=== PATIENT | female | born 2000 | race Two or more races ===

== ENCOUNTER 2024-04-04 17:33 | Observation (INO) | payer OTHER, SELFPAY ==
[2024-04-04 17:44] VITALS: BP 121/74; PULSE 115
[2024-04-04 17:47] VITALS: BMI 47.4
[2024-04-04 17:57] VITALS: BP 121/74; PULSE 114; RESP 18; TEMP 36.9
== END 2024-04-04 18:15 | disposition home or self-care (01) ==
PROVIDERS: Admitting Provider Obstetrics & Gynecology; Visit Provider Obstetrics & Gynecology
DX: O26.893 Other specified pregnancy related conditions, third trimester (principal); R25.2 Cramp and spasm; Z3A.37 37 weeks gestation of pregnancy
CPT/HCPCS: 59025; 59899

== ENCOUNTER 2024-04-06 12:47 | Observation (INO) | payer OTHER, SELFPAY ==
[2024-04-06] VITALS (20 sets, daily range): BP systolic 120–125; BP diastolic 70–82; PULSE 94–125; RESP 18–99; TEMP 36.8; O2SAT 93–99; BMI 47.1
[2024-04-06 14:15] LABS: Collection Type, Urine Clean Catch
[2024-04-06 14:32] LABS: Bilirubin,Urine Negative (Negative); Blood,Urine Negative (Negative); Clarity,Urine Clear (Clear/Hazy); Color,Urine Yellow (Lt Yel-Yel); Glucose, Urine Negative (Negative); Ketones,Urine 1+ (Negative); Leukocyte Esterase,Urine Positive (Negative); Nitrite,Urine Negative (Negative); PH,Urine 5.5 (5.0-7.0); Protein,Urine Trace (Neg - Trace); RBC,Urine 4 /hpf (0-3); Specific Gravity,Urine 1.022 (1.001-1.035); Squamous Epithelial Cell,Urine 1 /hpf (0-5); Urobilinogen,Urine Negative mg/dL (0.0-1.0); WBC,Urine 4 /hpf (0-5)
== END 2024-04-06 15:10 | disposition home or self-care (01) ==
PROVIDERS: Admitting Provider Specialist; Visit Provider Specialist
DX: O36.8130 Decreased fetal movements, third trimester, not applicable or unspecified (principal); O26.893 Other specified pregnancy related conditions, third trimester; R25.2 Cramp and spasm; Z3A.37 37 weeks gestation of pregnancy
CPT/HCPCS: 59025; 59899; 81001

== ENCOUNTER 2024-04-08 14:05 | Inpatient (IN) | payer OTHER, MEDICAID, SELFPAY ==
[2024-04-08] VITALS (37 sets, daily range): BP systolic 0–139; BP diastolic 0–86; PULSE 88–224; RESP 18–97; TEMP 36.5–36.6; O2SAT 82–99; BMI 47.4
--- NOTE | 2024-04-08 13:50 | XR_ITS ---
Examination: Biophysical profile, ultrasound Date and time of exam: April 08, 2024 1431 hours INDICATIONS: tachycardia today, history of oligohydramnios Technique: Multiple transabdominal sonographic images of the pelvis abdomen obtained. Attention is directed to the breathing movement, gross body movement, amniotic fluid volume and tone. Findings: Amniotic fluid index 4.3 cm Cardiac motion 169 bpm Total biophysical profile is 4 of 8 breathing movement is 2. Gross body movement 0. tone is 2. Qualitative amniotic fluid volume is 0 Impression: Biophysical profile is 4 of 8.
[2024-04-08 15:35] LABS: ROM Kit Lot # 57805053; ROM Swab Mixed By: OSEGA; Swb Mxed in Solvent 1 min? Yes
[2024-04-08 15:55] LABS: Rupture of Fetal Membranes Negative (Negative)
[2024-04-08 18:10] LABS: Basophils # (Auto) 0.1 Thou/mm3 (0.0-0.2); Basophils % (Auto) 0 % (0-2.5); Eosinophils # (Auto) 0.1 Thou/mm3 (0.0-0.5); Eosinophils % (Auto) 1 % (0-10); Hematocrit 37.2 % (36.0-46.0); Hemoglobin 12.4 g/dL (12.0-16.0); Immature Granulocytes % (Auto) 1 % (0-0); Immature Granulocytes Auto 0.14 Thou/mm3 (0.00-0.00); Lymphocytes % (Auto) 13 % (10-50); Mean Corpuscular HGB Conc 33.3 g/dl (31.0-37.0); Mean Corpuscular Hemoglobin 27.8 pg (25.0-35.0); Mean Corpuscular Volume 83 fL (80-100); Monocytes % (Auto) 6 % (0-12); Neutrophils # (Auto) 11.9 Thou/mm3 (1.8-7.7); Neutrophils % (Auto) 79 % (37-80); Nucleated Red Blood Cell % 0 /100 WBC (0); Platelet Count 359 Thou/mm3 (140-440); RDW Standard Deviation 43.7 fL (36.4-46.3); Red Blood Count 4.46 Miln/mm3 (4.00-5.20); White Blood Count 15.1 Thou/mm3 (3.6-11.0)
[2024-04-08 19:07] LABS: Syphilis Nonreactive (Nonreactive)
[2024-04-08] MEDS: DINOPROSTONE 10 MG VAG.SUPP VAGINAL (19:23)
[2024-04-08] MEDS: RINGERS LACTATED 1000 ML 1,000 ML 100 ML IV (19:27)
[2024-04-08] MEDS: cefTRIAXone/D5w 1gm IV premix 50 ML IV (20:14)
[2024-04-09] VITALS (63 sets, daily range): BP systolic 0–177; BP diastolic 0–111; PULSE 92–115; RESP 15–23; TEMP 36.3–37.3; O2SAT 79–100
[2024-04-09] MEDS: NIFEdipine 10 MG CAPSULE PO (01:25)
[2024-04-09] MEDS: RINGERS LACTATED 1000 ML 1,000 ML 100 ML IV ×2 (01:45→07:26)
--- NOTE | 2024-04-09 06:48 | PD.LDHP ---
Documentation for date of: 04/08/24 OB Labor/Induct. HPI History of Present Illness History of present illness: H and P dictated on the STAT line #9 . Dictation # [id number] History of Present Adequate Care: Yes Labs Labs: Negative: Hepatitis B, HIV, Chlamydia, Gonorrhea and Group Beta Strep Meds Home Medications and Allergies Home Medications ?Medication ?Instructions ?Recorded ?Confirmed ?Type aspirin 81 mg capsule 81 mg DAILY 04/08/24 04/08/24 History cefuroxime axetil 500 mg tablet 500 mg BID 04/08/24 04/08/24 History okroitmx-hpn-Rn-FA 1 mg 2 tab PO DAILY 04/08/24 04/08/24 History tablet Allergies Allergy/AdvReac Type Severity Reaction Status Date / Time sulfamethoxazole Allergy Mild Rash, Verified 04/08/24 14:23 Itching trimethoprim Allergy Mild Rash, Verified 04/08/24 14:23 Itching OB Exam Physical Exam Vital signs: Temp Pulse Resp BP Pulse Ox 98.7 F 96 18 127/77 94 L 04/09/24 04:03 04/09/24 06:29 04/08/24 16:50 04/09/24 06:29 04/09/24 06:40 OB Results Labs 04/08/24 17:00 Labs: Short CBC 04/08/24 Range/Units 17:00 WBC 15.1 H (3.6-11.0) Thou/mm3 Hgb 12.4 (12.0-16.0) g/dL Hct 37.2 (36.0-46.0) % Plt Count 359 (140-440) Thou/mm3
--- NOTE | 2024-04-09 06:49 | PD.LDPN ---
Documentation for date of: 04/09/24 OB Labor Progress Note Pain Control Comments: None Pelvic Exam Dilation (cm): 1.5 Effacement (%): 50 station: -3 Amniotic membrane status: Intact Contractions Contraction frequency: irregular Status status: Category l CNM Management Details of MD consultation: Tachysystole with Cervidil last night requiring removal and Procardia for tachysystole Discussed risks of giving Cytotec with oligohydramnios and concern about repeating Cervidil Patient declines further trial of induction. Elects delivery. Patient made aware of the risk complication alternatives benefits of the proposed procedure and she agrees
[2024-04-09] MEDS: ceFAZolin/D5W 2 GM IV 2 GM/100 ML BAG IV (07:12)
[2024-04-09] MEDS: METOCLOPRAMIDE INJ 5 MG/ML VIAL 2 ML 10 MG IVP (07:12)
[2024-04-09] MEDS: FAMOTIDINE INJ 10 MG/ML VIAL 2 ML 20 MG IV (07:12)
--- NOTE | 2024-04-09 07:12 | PD.LDDS ---
DS: Providers Provider Date of admission: 04/08/24 16:29 Primary care physician: Physician No Primary/Family Admitting Provider: Ryan Manzanares MD Attending Provider on Admission: Ryan Manzanares MD Attending Provider on DC: Ryan Manzanares MD Discharging Provider: Ryan Manzanares MD DS: Diagnosis Discharge Diagnosis (1) endometritis: Status: Acute (2) Uterine atony: Status: Acute (3) delivery delivered: Status: Acute (4) Failed induction of labor: Status: Acute (5) Oligohydramnios: Status: Acute (6) Uterine hypertonus: Status: Acute Problem List Completed Was Problem List Reviewed/Reconciled?: Yes Summary/Hosp Course Brief History: H and P dictated on the STAT line #9 . Dictation # [id number] Peripartum Data Delivery Method: Low Transverse Procedures: Procedures Operation Date: 04/09/24 07:45 <No data on this case meets the specified criteria> Time Spent with Patient Time attestation: Total time spent providing and/or coordinating discharge services: Exam Vital Signs Temp Pulse Resp BP Pulse Ox 98.7 F 105 H 18 139/83 H 96 04/09/24 04:03 04/09/24 06:59 04/08/24 16:50 04/09/24 06:59 04/09/24 07:10 Discharge Plan Plan Patient Disposition: HOME (Self Care) Patient condition on transfer: Stable Prescriptions/Referrals Prescriptions/Med Rec: New fluconazole 150 mg tablet 150 mg PO QDAY Qty: 1 0RF hydrocodone-acetaminophen 5-325 mg tablet 1 tab PO Q6H MDD 4 PRN (Reason: pain) Qty: 20 0RF ibuprofen 600 mg tablet 600 mg PO Q6H PRN (Reason: pain) Qty: 30 0RF Continued btxfsjqx-zil-Cq-FA 1 mg Tablet 2 tab PO DAILY cefuroxime axetil 500 mg Tablet 500 mg BID Discontinued aspirin 81 mg Capsule 81 mg DAILY Referrals: No Primary/Family,Physician [Primary Care Provider] - Patient/Caregiver Discharge Instructions Other Discharge Activity Instructions:: Schedule an appoitment with the in one week Education Materials: Breast Care After , After a , : Caring for Yourself, C Section Dc Print Language: Bengali Stand Alone Forms: Sherita Award Info., Patient Portal Info Letter Discharge Order Discharge Orders: Discharge (Routine); Ordered 04/12/24 Ordered By: Ryan Manzanares Planned Discharge Date 04/12/24
--- NOTE | 2024-04-09 08:16 | ESHP_ITS ---
RE: LATISHA BAEZ : 2000 DATE OF ADMISSION: 04/08/2024 HISTORY OF PRESENT ILLNESS: This 23-year-old 1 para 0 with due date of 04/22/2024 with intrauterine at 38 weeks and 0 days, who presents to labor and delivery today for tachycardia in the office and she underwent an evaluation and workup, which included a biophysical profile, which showed an GABE of 4.3 and no gross body movement consistent with biophysical of 4/8. The patient does report decreased movement. Her AmniSure is negative. She is being admitted for induction of labor for oligohydramnios at term. She reports she denies any bleeding. She had a maternal medicine ultrasound during her , which showed normal anatomy. She did have a mild COVID-19 infection on 11/30/2023. She has got borderline chronic hypertension, but she does not take any medications. She has a BMI of 48. ALLERGIES: BACTRIM. MEDICATIONS: 1. Cefuroxime 500 mg 1 p.o. b.i.d. 2. Clotrimazole 1% vaginal cream 1 applicator at bedtime. 3. Baby aspirin 81 mg 1 p.o. daily. 4. Albuterol sulfate 90 mcg per inhalation every 4 hours p.r.n. shortness of breath and wheezing. 5. vitamin 1 p.o. daily. SOCIAL HISTORY: She is single. She denies any alcohol or drug use or smoking. FAMILY HISTORY: Colon cancer and hypertension. PAST MEDICAL HISTORY: Class III obesity, borderline chronic hypertension, and asthma. PHYSICAL EXAMINATION: VITAL SIGNS: Blood pressure 137/85, heart rate 101, respirations 16, temperature is 98.6, and weight 317 pounds. HEENT: Oropharynx and sclerae are clear. LUNGS: Clear to auscultation bilaterally. HEART: Regular rate and rhythm. ABDOMEN: Gravid term size consistent with estimated weight of 7-1/2 pounds. PELVIC: See RN notes. EXTREMITIES: Nontender. SKIN: No gross rashes or lesions. NEUROLOGIC: No focal deficits. ASSESSMENT: Intrauterine at 38 weeks and 0 days, oligohydramnios, biophysical profile 4/8, borderline chronic hypertension, class III obesity. PLAN: Induction of labor. Informed consent was obtained. The patient was made aware of the risks, complications, alternatives, and benefits of the proposed procedure and she agrees. She is aware of the risk of operative vaginal delivery and delivery and agrees with these modes of delivery if indicated. DT: 16:33:22 TT: 17:07:00 Ref: [id number] - TID: [id number]
--- NOTE | 2024-04-09 08:41 | OBDSUM_ITS ---
Data ([facility]) Data : 1 Para: 0 Term: 0 : 0 : 0 Delivery Data ([facility]) Labor Data Induction: Yes ROM Date: 04/09/24 ROM Time: 08:12 Rupture Type: AROM Amniotic Fluid: Clear Delivery Data EDC: 04/22/24 EDC calculated by:: LMP/early US confirmation Labor Onset Stage 1 Date: 04/09/24 Labor Onset Stage 1 Time: 08:13 Labor Onset Stage 2 Date: 04/09/24 Labor Onset Stage 2 Time: 08:13 Delivery Date: 04/09/24 Delivery Time: 08:13 Gestational age (weeks): 38 Gestational age (days): 1 Placenta Delivery Date: 04/09/24 Placenta Delivery Time: 08:14 Delivered by: Ryan Manzanares Delivery nurse: Amy Lind Other staff at delivery: Nursery Nurse Other staff at delivery: Bowling Ball Marker Other staff at delivery: RT Other staff at delivery: Scrub Other staff at delivery: Sharron Angulo Other staff at delivery: Sigrid Fraga Other staff at delivery: JOHN Other staff at delivery: RAMOC Delivery Method Delivery: Delivery Type: Primary Presentation: Vertex Position: OP Anesthesia Type Primary Anesthesia: Spinal Secondary Anesthesia: General Placenta Placenta Delivery: Manual EBL Estimated blood loss (ml): 800 Umbilical Cord Umbilical Vessels: 3 Nuchal Cord: None Additional Procedures Vacuum assisted Delivery with Mity Vac (see OP Report) Complications Complications: Uterine atony [place] Data ([facility]) [place] Data Infant Gender: Female Weight Grams: 3450 1 Minute Total: 8 5 Minute Total: 9
[2024-04-09] MEDS: MISOPROSTOL 200 mCg TABLET 800 MCG PR (08:56)
[2024-04-09] MEDS: DIPHENOXYLATE/ATROP SULF 1 TAB PO (09:32)
[2024-04-09] MEDS: KETOROLAC INJ 30 MG/ML VIAL IVP ×2 (09:40→20:51)
--- NOTE | 2024-04-09 10:00 | ESOP_ITS ---
RE: LATISHA BAEZ : 2000 DATE OF OPERATION: 04/09/2024 PREOPERATIVE DIAGNOSES: 1. Intrauterine at 38 weeks and 1 day. 2. Oligohydramnios. 3. Biophysical profile 4/8. 4. Borderline chronic hypertension. 5. Class III obesity. 6. Failed induction. POSTOPERATIVE DIAGNOSES: 1. Intrauterine at 38 weeks and 1 day. 2. Oligohydramnios. 3. Biophysical profile /8. 4. Borderline chronic hypertension. 5. Class III obesity. 6. Failed induction. 7. Uterine atony. PROCEDURE PERFORMED: Primary low-transverse section via Pfannenstiel skin incision. SURGEON: Ryan Manzanares DO HAIRSPRING STUDDER: MISAEL Fontanez ANESTHESIA: Spinal with IV sedation. ANESTHESIOLOGIST: Nacho Virk CRNA ESTIMATED BLOOD LOSS: 800 mL COMPLICATIONS: Uterine atony. FINDINGS: A live female , cephalic presentation, occiput posterior. Apgars 8 and 9, weight 3450 g. DESCRIPTION OF PROCEDURE: After proper informed consent was obtained and the patient was made aware of the risks, complications, alternatives, and benefits of the proposed procedure, she was taken to the operating room where she underwent induction of spinal anesthesia. She was placed in the dorsal supine position with leftward tilt. She was prepped and draped in the usual sterile fashion. A timeout was performed. The patient still had some sensation, so she underwent IV sedation. A Pfannenstiel skin incision was made with a scalpel carried through to the underlying layer of fascia with the Bovie. The fascia was nicked in the midline. Incision extending bilaterally with the Bovie. The inferior aspect of the fascial incision was grasped with Silvina clamps and elevated. The underlying rectus muscle were dissected off with the Bovie. The rectus muscles were in the midline. The perineum identified between two Arnold clamps and incised sharply with the Metzenbaum scissors. The incision was extended superiorly and inferiorly with good visualization of the bladder. The bladder blade was then inserted. The vesicouterine peritoneum was incised transversely and bladder flap was created digitally. The bladder blades were reinserted. The lower uterine segment was incised in transverse fashion with scalpel. The incision was extended bilaterally and digitally. The patient's head was unable to be delivered. Therefore, vacuum was placed 3 cm forward of the posterior fontanelle over the sagittal suture and the first traction and tip of the head delivered. The mouth was suctioned with a bulb suction. Shoulder and body delivered atraumatically. The cord was clamped and cut. The was handed off to the waiting pediatric staff. Cord blood and gases were sent. The placenta was removed complete and intact. The uterus was exteriorized and cleared of all clots and debris. The uterus was initially atonic, but responded to uterotonics. The uterus incision was closed with #1-0 chromic catgut suture in a running locking fashion. A second layer of same suture was used to imbricate the first layer and obtained excellent hemostasis. The vesicouterine peritoneum was closed with 2-0 chromic suture in a running fashion. The uterus was returned to the abdomen. The gutters were cleared of all clots and debris. The lower uterine segment was hemostatic. The peritoneum was closed with a 0-chromic catgut suture in a running fashion. The muscle was closed with 0 chromic catgut suture in a running fashion. The fascia was closed with #0 Vicryl beginning at each angle and ending in the center in running fashion. Subcutaneous tissue was irrigated with normal saline solution and found to be hemostatic and closed with 2-0 chromic catgut suture in a running fashion. The skin was closed with 4-0 Monocryl. A Dermabond perineal dressing was applied. Sterile pressure dressing was applied. She tolerated the procedure well. Counts were correct. I discussed with the patient, the nature of her condition and the intraoperative findings and expectation for recovery. All questions answered. DT: 08:44:35 TT: 09:59:00 Ref: [id number] - TID: [id number]
[2024-04-09] MEDS: OXYTOCIN in NS 20 units 20 UNIT/1,000 ML BAG 125 UNIT IV ×2 (10:12→17:07)
[2024-04-09 13:52] LABS: Basophils # (Auto) 0.1 Thou/mm3 (0.0-0.2); Basophils % (Auto) 0 % (0-2.5); Eosinophils % (Auto) 0 % (0-10); Hematocrit 29.1 % (36.0-46.0); Hemoglobin 9.4 g/dL (12.0-16.0); Immature Granulocytes % (Auto) 1 % (0-0); Immature Granulocytes Auto 0.15 Thou/mm3 (0.00-0.00); Lymphocytes # (Auto) 2.1 Thou/mm3 (1.0-4.8); Lymphocytes % (Auto) 12 % (10-50); Mean Corpuscular HGB Conc 32.3 g/dl (31.0-37.0); Mean Corpuscular Hemoglobin 27.7 pg (25.0-35.0); Mean Corpuscular Volume 86 fL (80-100); Monocytes # (Auto) 1.1 Thou/mm3 (0.0-0.8); Monocytes % (Auto) 6 % (0-12); Neutrophils # (Auto) 14.1 Thou/mm3 (1.8-7.7); Neutrophils % (Auto) 81 % (37-80); Nucleated Red Blood Cell % 0 /100 WBC (0); Platelet Count 291 Thou/mm3 (140-440); RDW Standard Deviation 45.4 fL (36.4-46.3); Red Blood Count 3.39 Miln/mm3 (4.00-5.20); White Blood Count 17.4 Thou/mm3 (3.6-11.0)
[2024-04-10 00:14] VITALS: BP 130/84; PULSE 113; RESP 20; TEMP 36.8; O2SAT 97
[2024-04-10 04:25] VITALS: BP 124/80; PULSE 110; RESP 22; TEMP 36.9; O2SAT 97
[2024-04-10] MEDS: KETOROLAC INJ 30 MG/ML VIAL IVP (06:34)
[2024-04-10 07:30] LABS: Basophils % (Auto) 0 % (0-2.5); Eosinophils % (Auto) 0 % (0-10); Hematocrit 26.8 % (36.0-46.0); Immature Granulocytes % (Auto) 1 % (0-0); Immature Granulocytes Auto 0.15 Thou/mm3 (0.00-0.00); Lymphocytes % (Auto) 12 % (10-50); Mean Corpuscular HGB Conc 33.6 g/dl (31.0-37.0); Mean Corpuscular Hemoglobin 28.3 pg (25.0-35.0); Mean Corpuscular Volume 84 fL (80-100); Monocytes # (Auto) 1.1 Thou/mm3 (0.0-0.8); Monocytes % (Auto) 6 % (0-12); Neutrophils # (Auto) 13.9 Thou/mm3 (1.8-7.7); Neutrophils % (Auto) 81 % (37-80); Nucleated Red Blood Cell % 0 /100 WBC (0); Platelet Count 272 Thou/mm3 (140-440); RDW Standard Deviation 44.5 fL (36.4-46.3); Red Blood Count 3.18 Miln/mm3 (4.00-5.20); White Blood Count 17.2 Thou/mm3 (3.6-11.0)
[2024-04-10 08:15] VITALS: BP 127/87; PULSE 96; RESP 17; TEMP 36.7; O2SAT 99
[2024-04-10] MEDS: cefTRIAXone 1,000 MG, LIDOCAINE 1% 20 ML 2.1 ML IM (09:19)
[2024-04-10] MEDS: ENOXAPARIN SOD INJ 40 MG/0.4 ML SYRINGE SC (09:19)
[2024-04-10] MEDS: SIMETHICONE 80 MG CHEW PO ×3 (09:20→22:27)
--- NOTE | 2024-04-10 11:03 | ESPR_ITS ---
RE: LATISHA BAEZ : 2000 DATE OF SERVICE: 04/10/2024 S: On postop day#1, the patient denies any problem or complaint. She is tolerating regular diet. She is voiding without difficulty. She denies any chest pain, palpitation, shortness of breath or lower extremity pain. She denies any dizziness or lightheadedness. She denies any excessive vaginal bleeding. O: Vital Signs: Blood pressure 124/80, heart rate 110, respirations 22, temperature 98.5, pulse ox is 97% on room air. Lungs: Clear to auscultation bilaterally. Heart: Tachycardic, but regular rhythm. Abdomen: Nondistended. Fundus is firm. Dressing is dry and intact. Extremities: Nontender. LABORATORY DATA: Hemoglobin pre-delivery 12.4 and post-delivery is 9.0. A: Postop day #1, status post delivery. Urinary tract infection. P: Continue antibiotics and possible discharge home tomorrow. DT: 08:38:52 TT: 11:01:00 Ref: [id number] - TID: [id number]
[2024-04-10 11:45] VITALS: BP 127/84; PULSE 116; RESP 18; TEMP 36.7; O2SAT 99
--- NOTE | 2024-04-10 12:00 | XR_ITS ---
Examination: AP lateral chest 2 views Technique: AP portable upright lateral chest 2 views Exam date and time: April 10, 2024 1228 hrs. Indications: Coughing today. Findings: Underpenetrated film Normal heart size No lobar pneumonia No pulmonary edema The osseous structures are intact Impression: No lobar pneumonia
[2024-04-10 12:33] LABS: Basophils % (Auto) 0 % (0-2.5); Eosinophils % (Auto) 0 % (0-10); Hematocrit 29.4 % (36.0-46.0); Hemoglobin 9.8 g/dL (12.0-16.0); Immature Granulocytes % (Auto) 1 % (0-0); Immature Granulocytes Auto 0.18 Thou/mm3 (0.00-0.00); Lymphocytes # (Auto) 2.2 Thou/mm3 (1.0-4.8); Lymphocytes % (Auto) 12 % (10-50); Mean Corpuscular HGB Conc 33.3 g/dl (31.0-37.0); Mean Corpuscular Hemoglobin 28.2 pg (25.0-35.0); Mean Corpuscular Volume 85 fL (80-100); Monocytes # (Auto) 1.1 Thou/mm3 (0.0-0.8); Monocytes % (Auto) 6 % (0-12); Neutrophils # (Auto) 14.3 Thou/mm3 (1.8-7.7); Neutrophils % (Auto) 81 % (37-80); Nucleated Red Blood Cell % 0 /100 WBC (0); Platelet Count 306 Thou/mm3 (140-440); RDW Standard Deviation 44.4 fL (36.4-46.3); Red Blood Count 3.48 Miln/mm3 (4.00-5.20); White Blood Count 17.8 Thou/mm3 (3.6-11.0)
[2024-04-10 13:04] LABS: Alanine Aminotransferase 25 U/L (10-49); Albumin, Serum 3.5 gm/dL (3.5-5.0); Albumin/Globulin Ratio 1.5 (1.2-2.2); Alkaline Phosphatase 218 U/L (46-116); Anion Gap 9 (7-16); Aspartate Amino Transferase 22 U/L (0-34); BUN/Creatinine Ratio 10 Ratio (12-20); Bilirubin,Total 0.3 mg/dL (0.3-1.2); Blood Urea Nitrogen 8 mg/dL (9-23); Calcium (Corrected) 9.4 mg/dL (8.5-10.1); Carbon Dioxide 23.1 mMol/L (20.0-31.0); Chloride 107 mMol/L (98-107); Creatinine (Component) 0.8 mg/dL (0.6-1.3); Estimated Creatinine Clearance 248.5 mL/min (>60); Globulin 2.3 gm/dL (2.3-3.5); Glucose 114 mg/dL (74-106); Osmolality,Calculated 276 (275-295); Sodium 139 mMol/L (136-145); Total Protein 5.8 gm/dL (5.7-8.2); eGFR > 60 See Note
[2024-04-10 13:06] LABS: Procalcitonin 0.13 ng/ml (0.0-0.49)
[2024-04-10 13:15] LABS: INR 0.9 (0.9-1.3); Partial Thromboplastin Time 25.8 Seconds (22.0-36.0); Prothrombin Time 10.1 Seconds (9.0-12.2)
[2024-04-10] MEDS: SODIUM CHLORIDE 0.9% 1000 ML 1,000 ML 999 ML IV (14:00)
[2024-04-10] MEDS: AMPICILLIN/SULBAC INJ 3 GM in SODIUM CHLORIDE 0.9% (P) 100 ML IV ×2 (14:00→20:17)
[2024-04-10 15:15] VITALS: BP 121/81; PULSE 108; RESP 17; TEMP 36.8; O2SAT 99
[2024-04-10] MEDS: Milk Of Magnesia Susp 30 ML UDC PO (15:58)
[2024-04-10] MEDS: IBUPROFEN TAB 400 MG TABLET 800 MG PO (16:26)
[2024-04-10 19:30] VITALS: BP 123/83; PULSE 108; RESP 22; TEMP 36.8; O2SAT 98
[2024-04-11] MEDS: IBUPROFEN TAB 400 MG TABLET 800 MG PO ×2 (00:38→15:57)
[2024-04-11] MEDS: AMPICILLIN/SULBAC INJ 3 GM in SODIUM CHLORIDE 0.9% (P) 100 ML IV ×4 (02:42→20:36)
[2024-04-11 03:40] VITALS: BP 111/77; PULSE 97; RESP 18; TEMP 36.6; O2SAT 98
[2024-04-11 05:42] LABS: Basophils % (Auto) 0 % (0-2.5); Eosinophils % (Auto) 0 % (0-10); Hematocrit 25.7 % (36.0-46.0); Immature Granulocytes % (Auto) 1 % (0-0); Immature Granulocytes Auto 0.15 Thou/mm3 (0.00-0.00); Lymphocytes # (Auto) 2.4 Thou/mm3 (1.0-4.8); Lymphocytes % (Auto) 16 % (10-50); Mean Corpuscular HGB Conc 32.7 g/dl (31.0-37.0); Mean Corpuscular Hemoglobin 28.1 pg (25.0-35.0); Mean Corpuscular Volume 86 fL (80-100); Monocytes % (Auto) 7 % (0-12); Neutrophils # (Auto) 10.9 Thou/mm3 (1.8-7.7); Neutrophils % (Auto) 75 % (37-80); Nucleated Red Blood Cell % 0 /100 WBC (0); Platelet Count 268 Thou/mm3 (140-440); RDW Standard Deviation 45.9 fL (36.4-46.3); Red Blood Count 2.99 Miln/mm3 (4.00-5.20); White Blood Count 14.5 Thou/mm3 (3.6-11.0)
[2024-04-11 05:48] LABS: Hemoglobin 8.4 g/dL (12.0-16.0)
--- NOTE | 2024-04-11 06:29 | PC.NURSE ---
04-11-24624: Called MD Manzanares, made aware of CBC results from 04-11-24499, no new orders at this time.
--- NOTE | 2024-04-11 07:08 | ESPR_ITS ---
RE: LATISHA BAEZ : 2000 DATE OF SERVICE: 04/11/2024 S: Postop day #2, the patient feels much better. She denies any chest pain, palpitations, cough, fever, shortness of breath or lower extremity pain. She denies any headache, change in vision or right upper quadrant pain. She is voiding and ambulating and tolerating regular diet. She is passing flatus. She denies any dizziness or lightheadedness. O: Vitals Signs: Blood pressure 111/77, heart rate 97, respirations 18, temperature 97.9, and pulse oximetry 98% on room air. Lungs: Clear to auscultation bilaterally. Heart: Regular rate and rhythm. Abdomen: Incision clear and intact. Fundus is firm. Extremities: Nontender. Laboratory Data: White blood cell count went from 17.8 to 14.5. Hemoglobin went from 9.8 to 8.4 after a liter of fluid. A: 1. Postoperative day #2, status post delivery. 2. endometritis. 3. Urinary tract infection. P: Continue IV antibiotics for another 24 hours. Possible discharge home tomorrow. Iron deficiency anemia secondary to acute blood loss and dilutional effect of IV fluids, hemodynamically stable. DT: 06:36:56 TT: 07:06:00 Ref: [id number] - TID: [id number] MTDD
[2024-04-11 08:00] VITALS: BP 126/81; PULSE 117; RESP 19; TEMP 36.7; O2SAT 98
[2024-04-11] MEDS: ONDANSETRON INJ 2 MG/ML INJ 2 ML 4 MG IV (08:14)
[2024-04-11] MEDS: ENOXAPARIN SOD INJ 40 MG/0.4 ML SYRINGE SC (08:14)
[2024-04-11 12:00] VITALS: BP 130/80; PULSE 89; RESP 19; TEMP 36.7; O2SAT 98
[2024-04-11] MEDS: bisacodyL 10 MG SUPP PR (12:07)
[2024-04-11] MEDS: DOCUSATE SOD 100 MG CAPSULE PO (15:57)
[2024-04-11 15:59] VITALS: BP 132/80; PULSE 93; RESP 19; TEMP 36.7; O2SAT 97
[2024-04-11 19:44] VITALS: BP 122/81; PULSE 90; RESP 20; TEMP 37.2; O2SAT 98
--- NOTE | 2024-04-12 02:55 | PC.NURSE ---
04-12-24 At 0220 attempted to access patients IV for antibiotic administration, patients IV was infiltrated. Charge nurse made aware and attempted to insert another IV but was unsuccessful. MD Manzanares notified on 04-12-24 at 0242, new orders received.
[2024-04-12] MEDS: cefTRIAXone 1,000 MG, LIDOCAINE 1% 20 ML 2.1 ML IM (03:22)
[2024-04-12 04:00] VITALS: BP 127/84; PULSE 99; RESP 18; TEMP 36.8; O2SAT 99
[2024-04-12 06:53] LABS: Basophils % (Auto) 0 % (0-2.5); Eosinophils # (Auto) 0.1 Thou/mm3 (0.0-0.5); Eosinophils % (Auto) 1 % (0-10); Hematocrit 26.7 % (36.0-46.0); Hemoglobin 8.5 g/dL (12.0-16.0); Immature Granulocytes % (Auto) 1 % (0-0); Immature Granulocytes Auto 0.13 Thou/mm3 (0.00-0.00); Lymphocytes # (Auto) 2.4 Thou/mm3 (1.0-4.8); Lymphocytes % (Auto) 17 % (10-50); Mean Corpuscular HGB Conc 31.8 g/dl (31.0-37.0); Mean Corpuscular Volume 88 fL (80-100); Monocytes % (Auto) 7 % (0-12); Neutrophils % (Auto) 74 % (37-80); Nucleated Red Blood Cell % 0 /100 WBC (0); Platelet Count 316 Thou/mm3 (140-440); RDW Standard Deviation 47.9 fL (36.4-46.3); Red Blood Count 3.04 Miln/mm3 (4.00-5.20); White Blood Count 13.6 Thou/mm3 (3.6-11.0)
[2024-04-12 08:00] VITALS: BP 136/81; PULSE 110; RESP 16; TEMP 36.7; O2SAT 97
--- NOTE | 2024-04-12 08:00 | ESPR_ITS ---
RE: LATISHA BAEZ : 2000 DATE OF SERVICE: 04/12/2024 SUBJECTIVE: Postoperative day #3, the patient feels much better. She is voiding, ambulating, tolerating diet, passing flatus. She has had a bowel movement. She denies any excessive vaginal bleeding. She denies any dizziness or lightheadedness. She denies any chest pain, palpitations, shortness of breath, or lower extremity pain. OBJECTIVE: Vital Signs: Blood pressure 127/88, heart rate 99, respirations 18, temperature 98.2, pulse ox is 99% on room air. Lungs: Clear to auscultation bilaterally. Heart: Regular rate and rhythm. Abdomen: Incision clear and intact. Fundus is firm, nontender. Extremities: Nontender. LABORATORY DATA: Hemoglobin 8.5 and white blood cell count is 13.6. Blood culture is negative. Urine culture is pending. ASSESSMENT: 1. Postop day #3, status post delivery. 2. endometritis. 3. Urinary tract infection. PLAN: Discharge home on cefuroxime 500 mg p.o. b.i.d. x7 days. Follow up in the office on Friday. Discharge instructions given. Continue vitamin. DT: 07:31:12 TT: 07:59:00 Ref: [id number] - TID: [id number]
--- NOTE | 2024-04-12 09:07 | PC.NURSE ---
DR PALOMO MADE AWARE OF PTS VS. PER DOC OK FOR DC
== END 2024-04-12 11:10 | disposition home or self-care (01) | DRG 787 ==
LOC: S4SX 04-09 06:39 → S4NX 04-09 07:37
PROVIDERS: Admitting Provider Specialist; Visit Provider Specialist
PROC: 10D00Z1 Extraction of Products of Conception, Low, Open Approach (ICD-10-PCS; CPT 59514; principal; 2024-04-09 07:30)
DX: O41.03X0 Oligohydramnios, third trimester, not applicable or unspecified (principal); N39.0 Urinary tract infection, site not specified; O86.12 Endometritis following delivery; Z37.0 Single live birth; Z3A.38 38 weeks gestation of pregnancy; O99.214 Obesity complicating childbirth; E66.813 Obesity, class 3; O16.4 Unspecified maternal hypertension, complicating childbirth; O36.8130 Decreased fetal movements, third trimester, not applicable or unspecified; O61.1 Failed instrumental induction of labor; O62.2 Other uterine inertia; Z86.16 Personal history of COVID-19
CPT/HCPCS: 36415; 59025; 59409; 71046; 76819; 80053; 84112; 84145; 85025; 85610; 85730; 86780; 86850; 86900; 86901; 87040; 87077; 87086; 87186; 94762; A4649; J0295; J0689; J0696; J1650; J1885; J2250; J2274; J2371; J2405; J2590; J2704; J2765; J3010; J3490; J7030; J7120; S0191; A9270; J2270

== ENCOUNTER 2024-06-08 19:55 | Emergency (ER) | payer MEDICAID, SELFPAY ==
[2024-06-08 19:56] VITALS: BMI 43.4
[2024-06-08 20:44] VITALS: BP 125/72; PULSE 107; RESP 18; TEMP 37.6; O2SAT 99
--- NOTE | 2024-06-08 20:53 | PD.EDSKIN ---
ED Skin Abcess FB-RME/HPI General Chief complaint: Urogenital-Female Stated complaint: POSSIBLE MASTITIS Time Seen by Provider: 06/08/24 20:49 Arrival date/time: 06/08/24 19:55 23F with no significant PMH presents to ED with several days of L breast pain. Patient has been for about 2 months. Limitations: no limitations Related Data Home Medications ?Medication ?Instructions ?Recorded ?Confirmed cefuroxime axetil 500 mg tablet 500 mg BID 04/08/24 04/08/24 [id number]-FA 1 mg 2 tab PO DAILY 04/08/24 04/08/24 tablet Previous Rx's ?Medication ?Instructions ?Recorded fluconazole 150 mg tablet 150 mg PO QDAY #1 tab 04/12/24 hydrocodone 5 mg-acetaminophen 325 1 tab PO Q6H PRN pain #20 tabs 04/12/24 mg tablet ibuprofen 600 mg tablet 600 mg PO Q6H PRN pain #30 tabs 04/12/24 cephalexin 750 mg capsule 750 mg PO TID 7 days #21 caps 06/08/24 Allergies Allergy/AdvReac Type Severity Reaction Status Date / Time sulfamethoxazole Allergy Mild Rash, Verified 04/08/24 14:23 Itching trimethoprim Allergy Mild Rash, Verified 04/08/24 14:23 Itching Review of Systems Review of Systems Systems Reviewed: All systems reviewed, normal except as documented Constitutional Constitutional: Reports system reviewed and no additional complaints, except as documented, Denies fever(s) and Denies headache(s) ENT Ears, Nose, Mouth, and Throat: Denies disequilibrium and Denies headache(s) Cardiovascular Cardiovascular: Reports system reviewed and no additional complaints, except as documented, Denies chest pain and Denies dyspnea Respiratory Respiratory: Reports system reviewed and no additional complaints, except as documented, Denies cough and Denies dyspnea Gastrointestinal Gastrointestinal: Reports system reviewed and no additional complaints, except as documented, Denies abdominal pain, Denies nausea and Denies vomiting Integumentary/Breasts Skin/Breast: Reports as per HPI and Reports skin pain Neurologic Neurologic: Reports system reviewed and no additional complaints, except as documented, Denies confusion, Denies disequilibrium and Denies headache(s) Psychiatric Psychiatric: Denies confusion Past Medical History Past Medical History NEUROLOGIC: Negative Neurological Disorders, Seizures or Guillain-Stopover Syndrome CARDIAC: Negative Cardiac Disorders or Congestive Heart Failure RESPIRATORY: Negative Chronic Obstructive Pulmonary Disease (COPD), Bronchitis, Pneumonia or Tuberculosis GASTROINTESTINAL: Positive Gastrointestinal Disorders and Obesity; Negative Hepatitis, Gall Bladder Disease or Gastroesophageal Reflux Disease GENITOURINARY: Negative Genitourinary Disorders or Renal Disease REPRODUCTIVE: Negative Endometriosis, Genital Herpes, Gonorrhea, Pelvic Inflammatory Disease, Previous Pregnancies or Syphilis MUSCULOSKELETAL: Negative Musculoskeletal Disorders, Arthritis, Gout or Scoliosis ENDOCRINE: Negative Endocrine Disorders, Diabetes Mellitus Type 1 or Diabetes Mellitus Type 2 HEMATOLOGIC: Negative Blood Disorders, Anemia or Clotting Problems PSYCHO/SOCIAL: Negative Psychiatric Problems, Schizophrenia, Recreational Drug Use, Depression, Anxiety, Behavior Problems or Post Traumatic Stress Disorder OTHER HISTORY: Negative Hospitalization, Autoimmune Disease, Developmental Delay, Falls, Blood Transfusions, Blood Transfusion Reaction, Anesthesia Reactions, MRSA, VRSA, Vancomycin-Resistant Enterococci, Human Immunodeficiency Virus (HIV), Chicken Pox (unknown), Measles, Mumps, Rubella (Italian Measles), Pertussis, Clostridium Difficile or Cancer Family History FAMILY HISTORY: Positive Family Cancer (Maternal grandmother-colon cancer) and Family Surgery (sister-cholecystectomy); Negative Family Psychiatric Problems, Family Respiratory Disorders, Family Cardiac Disorders, Family Gastrointestinal Problems or Family Anesthesia Reaction Social History SMOKING STATUS: Never smoker ED Exam General Limitations: Present no limitations General appearance: Present alert and in no apparent distress Head Head exam: Present atraumatic Eye Eye exam: Present normal appearance, PERRL and EOMI ENT ENT exam: Present normal exam, normal oropharynx and mucous membranes moist Neck Neck exam: Present normal inspection, full ROM and trachea midline Chest Chest inspection: Present symmetric chest wall rise Expanded Chest Exam Breast: left: erythema and tenderness Respiratory Respiratory exam: Present normal lung sounds bilaterally Cardiovascular Cardiovascular exam: Present regular rate, normal rhythm and normal heart sounds Abdominal Exam Abdominal exam: Present soft and normal bowel sounds Extremities Exam Extremities exam: Present normal inspection and full ROM Back Exam Back exam: Present normal inspection and full ROM Neurological Exam Neurological exam: Present alert, oriented X3 and CN II-XII intact Psychiatric Psychiatric exam: Present normal affect and normal mood Skin Skin exam: Present warm, dry, intact and normal color Course Quality Measures none Orders Category Date Time Status cephALEXin [Keflex] Med 06/08/24 20:50 Discontinued 500 mg PO X1 ONE Vital Signs Vital signs: Vital Signs Temperature 99.7 F 06/08/24 20:44 Pulse Rate 107 H 06/08/24 20:44 Respiratory Rate 18 06/08/24 20:44 Blood Pressure 125/72 06/08/24 20:44 Pulse Oximetry (%) 99 06/08/24 20:44 Oxygen Delivery Method Room Air 06/08/24 20:44 O2 at 99% on RA and WNLs Skin / Abscess / Foreign Body MDM Narrative MDM Narrative:: 23F with no significant PMH presents to ED with several days of L breast pain. Patient has been for about 2 months. Physical exam with vehicle inspector reveals L breast tenderness and redness, but no obvious area of fluctuance. Patient is afebrile, calm, and alert. Likely mastitis. Patient data External records reviewed:: [facility] previous records Clinical information provided by:: patient Social determinants that could affect healthcare access:: none Patient has the following chronic illnesses:: none How is presenting disease/condition affected by chronic disease/condition?: no chronic disease Evaluation data The following diagnostics were reviewed and interpreted by me:: other (specify) (none) Lab and/or radiology exams considered but not ordered:: not ordered Interpretation Summary: n/a Medications / Prescriptions Medications or Prescriptions considered but not ordered:: ordered Medication administrations:: Medication Administration History Discontinued Medications Cephalexin HCl (Cephalexin 250 Mg Capsule) 500 mg PO X1 ONE Stop: 06/08/24 20:51 above Consultations Consultation(s) initiated? (list below): No Diagnosis Skin/Abscess Differential Diagnosis: abscess of skin or subcutaneous tissue, viral exanthem, dermatophytosis, urticaria, herpes zoster, allergic reaction to drug, cellulitis, eczema, insect bites, impetigo, contact dermatitis and other (mastitis) Most likely diagnosis given after review of the tests above:: mastitis Admission Indicated Admission indicated?: not indicated Admission Request Was there a request for admission?: No Disposition Plan Disposition Plan: Discharge Discharge Attestation Discharge Attestation: The patient and all family members were given an opportunity to ask questions and understood the discharge instructions. Discharge instructions specifically effects, indications for sooner follow up or return to the emergency department, and the expected course of current diagnosis. Patient condition: Stable Discharge Plan Plan Patient Disposition: HOME (Self Care) Disposition Comment: STable Prescriptions/Referrals Prescriptions/Med Rec: New cephalexin 750 mg capsule 750 mg PO TID 7 Days Qty: 21 0RF No Action jlzpiezu-ywk-[id number]-FA 1 mg Tablet 2 tab PO DAILY cefuroxime axetil 500 mg Tablet 500 mg BID fluconazole 150 mg tablet 150 mg PO QDAY Qty: 1 0RF hydrocodone-acetaminophen 5-325 mg tablet 1 tab PO Q6H MDD 4 PRN (Reason: pain) Qty: 20 0RF ibuprofen 600 mg tablet 600 mg PO Q6H PRN (Reason: pain) Qty: 30 0RF Referrals: No Primary/Family,Physician [Primary Care Provider] - In 1 week Problem List Clinical Impression: Mastitis Patient/Caregiver Discharge Instructions Education Materials: ED Mastitis Additional Instructions: Please follow-up with PCP within 24-48 hours and return immediately if symptoms worsen. Can continue to breastfeed. Print Language: Yoruba Stand Alone Forms: Patient Portal Info Letter PA/UTILITY WORKER [employer] Supervising Physician PA/UTILITY WORKER [employer] Supervising Physician: Dr. Medrano
[2024-06-08] MEDS: cephALEXin 250 MG CAPSULE 500 MG PO (21:01)
== END 2024-06-08 21:11 | disposition home or self-care (01) ==
PROVIDERS: Emergency Provider Emergency Medicine
DX: N61.0 Mastitis without abscess (principal)
CPT/HCPCS: 99282; A9270

== ENCOUNTER 2024-12-29 19:29 | Emergency (ER) | payer OTHER, MEDICAID, SELFPAY ==
[2024-12-29 19:30] VITALS: BMI 43.9
--- NOTE | 2024-12-29 19:43 | EKG_ITS ---
[facility] Test Date: 2024-12-29 Pat Name: LATISHA BAEZ Department: Room: - Gender: Female Environmental Compliance Officer: : 2000 Requested By: Jarrell Brooks Order Number: [id number] Reading MD: Jarrell Brooks Measurements Intervals [place] Rate: 80 P: 31 NM: 172 QRS: 69 QRSD: 83 T: 32 QT: 332 QTc: 385 Interpretive Statements SINUS RHYTHM NONSPECIFIC T-WAVE ABNORMALITY No previous ECG available for comparison /store/[email or web address]/[id number].pdf
[2024-12-29 20:49] VITALS: BP 133/90; PULSE 84; RESP 20; TEMP 37.1; O2SAT 98
--- NOTE | 2024-12-29 20:51 | PD.EDCHEST ---
ED Chest Pain RME/HPI General Chief Complaint: Chest Pain Stated Complaint: chest pain Time Seen by Provider: 12/29/24 20:28 Arrival date/time: 12/29/24 19:29 24-year-old female with a history of migraines reports today with complaints of a severe migraine that is radiating down the left side of her neck shoulder and into her chest accompanied with nausea. She denies any vomiting shortness of breath cough congestion fever chills vision or hearing disturbances or dizziness. Patient states that she is currently nursing and therefore has not taken any medications for her symptoms. Patient also denies chance of Limitations: no limitations Related Data Home Medications ?Medication ?Instructions ?Recorded ?Confirmed cefuroxime axetil 500 mg tablet 500 mg BID 04/08/24 04/08/24 [id number]-[id number] 1 mg 2 tab PO DAILY 04/08/24 04/08/24 tablet Previous Rx's ?Medication ?Instructions ?Recorded fluconazole 150 mg tablet 150 mg PO QDAY #1 tab 04/12/24 hydrocodone 5 mg-acetaminophen 325 1 tab PO Q6H PRN pain #20 tabs 04/12/24 mg tablet ibuprofen 600 mg tablet 600 mg PO Q6H PRN pain #30 tabs 04/12/24 Allergies Allergy/AdvReac Type Severity Reaction Status Date / Time sulfamethoxazole Allergy Mild Rash, Verified 12/29/24 19:34 Itching trimethoprim Allergy Mild Rash, Verified 12/29/24 19:34 Itching Review of Systems Constitutional Constitutional: Denies chills, Denies excessive sweating, Denies fatigue and Denies fever(s) Eyes Eyes: Denies blind spots and Denies change in vision ENT Ears, Nose, Mouth, and Throat: Denies neck pain and Denies sinus pressure Cardiovascular Cardiovascular: Reports chest pain, Denies dyspnea and Denies syncope Respiratory Respiratory: Denies cough and Denies dyspnea Gastrointestinal Gastrointestinal: Reports nausea and Denies vomiting Genitourinary Genitourinary: Denies abnormal vaginal bleeding and Denies hematuria Musculoskeletal Musculoskeletal: Denies back pain and Denies neck pain Integumentary/Breasts Skin/Breast: Denies rash and Denies wounds Neurologic Neurologic: Denies convulsions and Denies syncope Psychiatric Psychiatric: Denies anxiety and Denies depression Endocrine Endocrine: Denies excessive sweating and Denies fatigue Past Medical History Past Medical History NEUROLOGIC: Negative Neurological Disorders, Seizures or Guillain-Ennis Syndrome CARDIAC: Negative Cardiac Disorders or Congestive Heart Failure RESPIRATORY: Negative Chronic Obstructive Pulmonary Disease (COPD), Bronchitis, Pneumonia or Tuberculosis GASTROINTESTINAL: Positive Gastrointestinal Disorders and Obesity; Negative Hepatitis, Gall Bladder Disease or Gastroesophageal Reflux Disease GENITOURINARY: Negative Genitourinary Disorders or Renal Disease REPRODUCTIVE: Negative Endometriosis, Genital Herpes, Gonorrhea, Pelvic Inflammatory Disease, Previous Pregnancies or Syphilis MUSCULOSKELETAL: Negative Musculoskeletal Disorders, Arthritis, Gout or Scoliosis ENDOCRINE: Negative Endocrine Disorders, Diabetes Mellitus Type 1 or Diabetes Mellitus Type 2 HEMATOLOGIC: Negative Blood Disorders, Anemia or Clotting Problems PSYCHO/SOCIAL: Negative Psychiatric Problems, Schizophrenia, Recreational Drug Use, Depression, Anxiety, Behavior Problems or Post Traumatic Stress Disorder OTHER HISTORY: Negative Hospitalization, Autoimmune Disease, Developmental Delay, Falls, Blood Transfusions, Blood Transfusion Reaction, Anesthesia Reactions, MRSA, VRSA, Vancomycin-Resistant Enterococci, Human Immunodeficiency Virus (HIV), Chicken Pox (unknown), Measles, Mumps, Rubella (Irish Measles), Pertussis, Clostridium Difficile or Cancer Family History FAMILY HISTORY: Positive Family Cancer (Maternal grandmother-colon cancer) and Family Surgery (sister-cholecystectomy); Negative Family Psychiatric Problems, Family Respiratory Disorders, Family Cardiac Disorders, Family Gastrointestinal Problems or Family Anesthesia Reaction Social History SMOKING STATUS: Never smoker ED Exam General Limitations: Present no limitations General appearance: Present alert and in no apparent distress Head Head exam: Present atraumatic Eye Eye exam: Present normal appearance, PERRL and EOMI ENT ENT exam: Present normal exam, normal oropharynx and mucous membranes moist Neck Neck exam: Present normal inspection, full ROM and trachea midline Chest Chest inspection: Present normal inspection and symmetric chest wall rise Respiratory Respiratory exam: Present normal lung sounds bilaterally Cardiovascular Cardiovascular exam: Present regular rate, normal rhythm and normal heart sounds Abdominal Exam Abdominal exam: Present soft and normal bowel sounds Extremities Exam Extremities exam: Present normal inspection and full ROM Back Exam Back exam: Present normal inspection and full ROM Neurological Exam Neurological exam: Present alert, oriented X3 and CN II-XII intact Psychiatric Psychiatric exam: Present normal affect and normal mood Skin Skin exam: Present warm, dry, intact and normal color Course Course Course Narrative: 24-year-old female with a history of migraine disorder has not taken any medications reports with complaints of a migraine that extends to her neck and her back. Patient EKG normal sinus rhythm no STEMI or ischemic changes noted chest x-ray is without infiltrates or opacities. Differential diagnosis includes migraine headache, muscle skeletal pain, viral syndrome. Patient is stable nontoxic-appearing with stable vital signs she is advised to take some jnvg-gyd-eamubue medications and advised that which she can take while nursing for the headaches and advised follow-up with her primary care provider. She is also advised that her symptoms should worsen to return to the emergency department Quality Measures none Orders Category Date Time Status EKG (ED ONLY) *Do not use* NOW Care 12/29/24 19:44 Completed EKG (ED Only) Stat Exams 12/29/24 19:43 Draft XR chest 2V Stat Exams 12/29/24 21:00 Completed Vital Signs Vital signs: Vital Signs Temperature 98.8 F 12/29/24 20:49 Pulse Rate 84 12/29/24 20:49 Respiratory Rate 20 12/29/24 20:49 Blood Pressure 133/90 H 12/29/24 20:49 Pulse Oximetry (%) 98 12/29/24 20:49 Oxygen Delivery Method Room Air 12/29/24 20:49 PROCEDURES: EKG Interpretation #1: EKG Impression: Normal sinus rhythm, No acute ST-T changes and No ischemic changes Chest Pain Patient data External records reviewed:: Other (specify) Clinical information provided by:: patient Social determinants that could affect healthcare access:: none Patient has the following chronic illnesses:: none How is presenting disease/condition affected by chronic disease/condition?: no chronic disease Evaluation data The following diagnostics were reviewed and interpreted by me:: lab results and radiology exam(s) Lab and/or radiology exams considered but not ordered:: none Interpretation Summary: ekg no stemi no ischemia, cxr negative for opacities or infiltrates Medications / Prescriptions Medications or Prescriptions considered but not ordered:: none Medication administrations:: none Consultations Consultation(s) initiated? (list below): No Diagnosis Most likely diagnosis given after review of the tests above:: Migraine headache Admission Indicated Admission indicated?: not indicated Admission Request Was there a request for admission?: No Disposition Plan Disposition Plan: Discharge Discharge Attestation Discharge Attestation: The patient and all family members were given an opportunity to ask questions and understood the discharge instructions. Discharge instructions specifically effects, indications for sooner follow up or return to the emergency department, and the expected course of current diagnosis. Patient condition: Stable Discharge Plan Plan Patient Disposition: HOME (Self Care) Prescriptions/Referrals Prescriptions/Med Rec: No Action fagghsfk-rra-Zz-FA 1 mg Tablet 2 tab PO DAILY cefuroxime axetil 500 mg Tablet 500 mg BID fluconazole 150 mg tablet 150 mg PO QDAY Qty: 1 0RF hydrocodone-acetaminophen 5-325 mg tablet 1 tab PO Q6H MDD 4 PRN (Reason: pain) Qty: 20 0RF ibuprofen 600 mg tablet 600 mg PO Q6H PRN (Reason: pain) Qty: 30 0RF Referrals: No Primary/Family,Physician [Primary Care Provider] - In 1 week Problem List Clinical Impression: Headache, migraine Patient/Caregiver Discharge Instructions Discharge Activity: activity as tolerated Education Materials: ED Headache, Migraine, Classic Additional Instructions: It is safe to use pbrt-auv-vcvdseb medication such as Tylenol and ibuprofen as needed for pain while breast feeding. Hydrate well with water.? If you should experience severe headache with nausea and vomiting dizziness weakness blurred vision or ringing in ears shortness of breath chest pain go to the emergency department or call 911 immediately Print Language: Bulgarian Stand Alone Forms: Sherita Award Info., Patient Portal Info Letter
--- NOTE | 2024-12-29 21:00 | XR_ITS ---
Examination: PA lateral chest 2 views Technique: Upright PA lateral chest 2 views Date and time: December 29, 2024, 2110 hrs. Indications: Chest pain today. Findings: Normal heart size. Lungs are clear. The osseous structures are intact Impression: No active disease
== END 2024-12-29 22:28 | disposition home or self-care (01) ==
PROVIDERS: Emergency Provider Emergency Medicine
DX: G43.909 Migraine, unspecified, not intractable, without status migrainosus (principal)
CPT/HCPCS: 71046; 93005; 99283

== ENCOUNTER 2024-12-30 18:46 | Emergency (ER) | payer OTHER, MEDICAID, SELFPAY ==
[2024-12-30 18:47] VITALS: BP 126/85; PULSE 125; RESP 25; TEMP 37.2; O2SAT 97
[2024-12-30 19:08] VITALS: PULSE 120; RESP 22; O2SAT 100
[2024-12-30 19:39] VITALS: BMI 42.8
--- NOTE | 2024-12-30 20:00 | PD.EDANX ---
ED Anxiety RME/HPI General Chief Complaint: Anxiety Stated Complaint: PANIC ATTACK Time Seen by Provider: 12/30/24 19:20 Arrival date/time: 12/30/24 18:46 RME / HPI RME / HPI narrative: 24-year-old female patient came in for evaluation regarding headache. Onset of symptoms times yesterday as headache, it comes and goes, this time associated with anxiety like symptoms, palpitation, hyperventilation, shortness of breath, lasting for several minutes. Patient was given oxygen by EMS. On my initial evaluation her anxiety is almost gone. Patient still complaining of headache dull ache severity mild denies any focal neurologic deficit denies any head trauma denies any fall denies any fever. Related Data Home Medications ?Medication ?Instructions ?Recorded ?Confirmed cefuroxime axetil 500 mg tablet 500 mg BID 04/08/24 04/08/24 [id number] 1 mg 2 tab PO DAILY 04/08/24 04/08/24 tablet Previous Rx's ?Medication ?Instructions ?Recorded fluconazole 150 mg tablet 150 mg PO QDAY #1 tab 04/12/24 hydrocodone 5 mg-acetaminophen 325 1 tab PO Q6H PRN pain #20 tabs 04/12/24 mg tablet ibuprofen 600 mg tablet 600 mg PO Q6H PRN pain #30 tabs 04/12/24 hydroxyzine HCl 50 mg tablet 50 mg PO TID PRN anxiety #30 tabs 12/30/24 Allergies Allergy/AdvReac Type Severity Reaction Status Date / Time sulfamethoxazole Allergy Mild Rash, Verified 12/30/24 19:31 Itching trimethoprim Allergy Mild Rash, Verified 12/30/24 19:31 Itching Review of Systems Review of Systems Narrative Review of Systems: Review of system reviewed and within normal limits except mentioned in HPI ED Exam Narrative Physical exam: VITAL SIGNS: Reviewed. GENERAL APPEARANCE: Alert and interactive, follows commands, no acute distress, HEAD AND FACE: Non-traumatic. ENT: PERRL, pink conjunctivitis, eyelid no trauma, Mucous membrane moist. NECK: Supple, nontender, no nuchal rigidity. CHEST: No tenderness, no crepitus, no paradoxical movement, no retractions. LUNGS: Clear, well ventilated, symmetric, no rales, no wheezing, no ronchi, no stridor, good breath sounds bilaterally. HEART: Regular rate, regular rhythm, no murmur, no gallops. ABDOMEN: Soft, positive bowel sounds, nondistended, no guarding, nontender, no rebound, no masses, RECTAL: Deferred. GENITAL: Deferred. NEUROLOGICAL: Gross motor function intact sensory function intact, Appropriate for age. MUSCULOSKELETAL: low back nontender, full range of motion. EXTREMITIES: Nontender, full range of motion. SKIN: Color pink, dry, no rash, no lacerations, no abrasions, no contusions. LYMPHATICS: Deferred. Course Quality Measures none Orders Category Date Time Status DiphenhydrAMINE [Benadryl] Med 12/30/24 19:59 Once 5 mg PO X1 ONE Ketorolac Inj [Toradol Inj] Med 12/30/24 19:59 Once 30 mg IM X1 ONE Metoclopramide [Reglan] Med 12/30/24 19:59 Once 10 mg PO X1 ONE Vital Signs Vital signs: Vital Signs Temperature 98.9 F 12/30/24 18:47 Pulse Rate 125 H 12/30/24 18:47 Respiratory Rate 25 H 12/30/24 18:47 Blood Pressure 126/85 H 12/30/24 18:47 Pulse Oximetry (%) 97 12/30/24 18:47 Oxygen Delivery Method Room Air 12/30/24 18:47 Anxiety MDM Narrative MDM Narrative: 24-year-old female patient came in for evaluation regarding headache. Onset of symptoms times yesterday as headache, it comes and goes, this time associated with anxiety like symptoms, palpitation, hyperventilation, shortness of breath, lasting for several minutes. Patient was given oxygen by EMS. On my initial evaluation her anxiety is almost gone. Patient still complaining of headache dull ache severity mild denies any focal neurologic deficit denies any head trauma denies any fall denies any fever. Patient was given Toradol IM, Benadryl and Reglan with significant improvement of symptoms. Patient is not having any symptoms prior to discharge. I reviewed patient's EKG and chest x-ray that was done yesterday and all came back unremarkable. Stable for discharge home. Patient data External records reviewed:: None Clinical information provided by:: patient Social determinants that could affect healthcare access:: none Patient has the following chronic illnesses:: None How is presenting disease/condition affected by chronic disease/condition?: uneffected by Evaluation data The following diagnostics were reviewed and interpreted by me:: other (specify) (None) Lab and/or radiology exams considered but not ordered:: None Interpretation Summary: None Medications / Prescriptions Medications or Prescriptions considered but not ordered:: None Medication administrations:: See MDM Consultations Consultation(s) initiated? (list below): No Diagnosis Differential diagnosis anxiety: hyperventilation, panic disorder, acute anxiety and other (Headache) Most likely diagnosis given after review of the tests above:: Headache, anxiety Admission Indicated Admission indicated?: not indicated Admission Request Was there a request for admission?: No Disposition Plan Disposition Plan: Discharge Discharge Attestation Discharge Attestation: The patient and all family members were given an opportunity to ask questions and understood the discharge instructions. Discharge instructions specifically effects, indications for sooner follow up or return to the emergency department, and the expected course of current diagnosis. Patient condition: Stable Discharge Plan Plan Patient Disposition: HOME (Self Care) Discharge Disposition comment: Stable Prescriptions/Referrals Prescriptions/Med Rec: New hydroxyzine HCl 50 mg tablet 50 mg PO TID PRN (Reason: anxiety) Qty: 30 0RF No Action [id number] 1 mg Tablet 2 tab PO DAILY cefuroxime axetil 500 mg Tablet 500 mg BID fluconazole 150 mg tablet 150 mg PO QDAY Qty: 1 0RF hydrocodone-acetaminophen 5-325 mg tablet 1 tab PO Q6H MDD 4 PRN (Reason: pain) Qty: 20 0RF ibuprofen 600 mg tablet 600 mg PO Q6H PRN (Reason: pain) Qty: 30 0RF Referrals: Alyssa Lang MD [Primary Care Provider, Nephrology] - In 1 week Problem List Clinical Impression: Anxiety, Headache Patient/Caregiver Discharge Instructions Discharge Activity: activity as tolerated Education Materials: Anxiety Disorders Tx Therapy Additional Instructions: Thank you for the opportunity for serving you today. You are stable for discharged . You are advised to: Follow-up with your PCP in 1 to 2 days Return to ED for worsening of symptoms Increase oral fluids Take medication as prescribed Print Language: Maltese Stand Alone Forms: Sherita Award Info., Patient Portal Info Letter PA/EILEEN Supervising Physician ORTIZ/EILEEN Supervising Physician: MD Gilles
[2024-12-30] MEDS: METOCLOPRAMIDE 5 MG TABLET 10 MG PO (20:49)
[2024-12-30] MEDS: KETOROLAC INJ 60 MG/2 ML VIAL 30 MG IM (20:50)
[2024-12-30 21:22] VITALS: BP 138/78; PULSE 79; RESP 18; TEMP 36.6; O2SAT 98
[2024-12-30 21:59] VITALS: PULSE 83; RESP 16; O2SAT 100
== END 2024-12-30 22:00 | disposition home or self-care (01) ==
PROVIDERS: Emergency Provider Emergency Medicine; PCP Internal Medicine
DX: F41.9 Anxiety disorder, unspecified (principal); R51.9 Headache, unspecified
CPT/HCPCS: 96372; 99283; J1885; A9270